=== PATIENT | female | born 1970 | race Caucasian/White ===

== ENCOUNTER 2023-01-11 19:32 | Emergency (ER) | payer OTHER ==
[~2023-01-11] VITALS: Ht 157.5 cm; Wt 62.7 kg
[2023-01-11 19:36] VITALS: BP 112/67
[2023-01-11] MEDS ORDERED: KETOROLAC 60 MG VIAL (30MG/ML) IM ONE (20:00)
[2023-01-11] MEDS ORDERED: CYCL5TAB PO (21:13)
[2023-01-11] MEDS ORDERED: IBUP-2070 PO (21:13)
== END 2023-01-11 21:27 | disposition home or self-care (01) ==
LOC: EDH 19:32
DX: S86.111A Strain of other muscle(s) and tendon(s) of posterior muscle group at lower leg level, right leg, initial encounter (principal); F17.210 Nicotine dependence, cigarettes, uncomplicated; Z59.7 Insufficient social insurance and welfare support; Z90.710 Acquired absence of both cervix and uterus; X58.XXXA Exposure to other specified factors, initial encounter; Y93.89 Activity, other specified; Y92.89 Other specified places as the place of occurrence of the external cause; Y99.8 Other external cause status
CPT/HCPCS: 99285; 93971; 96372; J1885